=== PATIENT | female | born 1980 | race American Indian/Alaskan Native ===

== ENCOUNTER 2017-10-29 12:34 | Emergency (ER) | payer SELFPAY ==
[2017-10-29 12:46] VITALS: BP 111/63
--- NOTE | 2017-10-29 17:58 | Emergency Department Report ---
- General Chief Complaint: Upper Respiratory Infection Stated Complaint: FLU LIKE SYMPTOMS Time Seen by Provider: 10/29/17 17:41 Source: patient Mode of arrival: Ambulatory Limitations: No Limitations - History of Present Illness Initial Comments: This is a 37-year-old female who reports that she is not who presents with sore throat and hoarse voice, nasal congestion and discharge. MD Complaint: cough, sore throat, rhinorrhea, nasal congestion, sinus pain -: Gradual, days(s) Severity: moderate Quality: aching Consistency: intermittent Improves With: nothing Worsens With: nothing Associated Symptoms: headache, rhinorrhea, nasal congestion, sore throat, cough , hoarseness. denies: fever, chills, myalgias, diaphoresis, stiff neck, chest pain, shortness of breath, abdominal pain, nausea, vomiting, diarrhea, dysuria, rash, confusion, right sweats, weight loss, epistaxis, ear pain - Related Data Previous Rx's Medication Instructions Recorded Last Taken Type Acetaminophen [Tylenol Arthritis] 650 mg PO Q6HR PRN #30 tablet.er 10/29/17 Unknown Rx Fluticasone [Flonase] 1 spray NS QDAY #1 bottle 10/29/17 Unknown Rx Ibuprofen [Motrin] 600 mg PO Q8H PRN #30 tablet 10/29/17 Unknown Rx Allergies Allergy/AdvReac Type Severity Reaction Status Date / Time No Known Allergies Allergy Unverified 10/29/17 12:46 ED Review of Systems ROS: Stated complaint: FLU LIKE SYMPTOMS Other details as noted in HPI ED Past Medical Hx - Past Medical History Previous Medical History?: No - Surgical History Past Surgical History?: No - Social History Smoking Status: Never Smoker Substance Use Type: None - Medications Home Medications: Home Medications Medication Instructions Recorded Confirmed Last Taken Type Acetaminophen [Tylenol Arthritis] 650 mg PO Q6HR PRN #30 tablet.er 10/29/17 Unknown Rx Fluticasone [Flonase] 1 spray NS QDAY #1 bottle 10/29/17 Unknown Rx Ibuprofen [Motrin] 600 mg PO Q8H PRN #30 tablet 10/29/17 Unknown Rx ED Physical Exam - General Limitations: No Limitations General appearance: alert, in no apparent distress - Head Head exam: Present: atraumatic, normocephalic - Eye Eye exam: Present: normal appearance, PERRL, EOMI. Absent: nystagmus - ENT ENT exam: Present: normal exam (there is not sinus tenderness), normal orophraynx, mucous membranes moist, TM's normal bilaterally, normal external ear exam, other (there is nasal congestion noted in the right nostril. There is green-yellow mucus noted in the right nostril.) - Neck Neck exam: Present: normal inspection - Respiratory Respiratory exam: Present: normal lung sounds bilaterally. Absent: respiratory distress - Cardiovascular Cardiovascular Exam: Present: regular rate, normal rhythm, normal heart sounds. Absent: bradycardia, tachycardia, irregular rhythm, systolic murmur, diastolic murmur, rubs, gallop - GI/Abdominal GI/Abdominal exam: Present: soft. Absent: distended, tenderness, guarding, rebound, rigid, pulsatile mass - Extremities Exam Extremities exam: Present: normal inspection, tenderness, normal capillary refill. Absent: pedal edema, joint swelling, calf tenderness - Back Exam Back exam: Present: normal inspection, full ROM. Absent: tenderness, CVA tenderness (R), paraspinal tenderness, vertebral tenderness - Neurological Exam Neurological exam: Present: alert, oriented X3, CN II-XII intact, normal gait, other (Extraocular movements intact. Tongue midline. No facial droop. Facial sensation intact to light touch in the V1, V2, V3 distribution bilaterally. 5 and 5 strength in 4 extremities.. Sensation is intact to light touch in 4 extremities.). Absent: motor sensory deficit - Psychiatric Psychiatric exam: Present: normal affect, normal mood - Skin Skin exam: Present: warm, dry, intact, normal color. Absent: rash ED Course Vital Signs 10/29/17 12:44 Temperature 98.4 F Pulse Rate 89 Respiratory 16 Rate Blood Pressure 111/63 O2 Sat by Pulse 98 Oximetry ED Medical Decision Making - Lab Data Vital Signs 10/29/17 12:44 Temperature 98.4 F Pulse Rate 89 Respiratory 16 Rate Blood Pressure 111/63 O2 Sat by Pulse 98 Oximetry - Medical Decision Making Differential diagnosis, including but not limited to: Seasonal allergies, viral syndrome, sinusitis, laryngitis Assessment and plan: 37-year-old female who reports that she is not with laryngitis and nasal congestion. She is afebrile with reassuring vital signs, protecting her airway, clinically sober, has an unremarkable physical examination. She is noted to be playing on a saline phone. She can be managed expectantly. Critical care attestation.: If time is entered above; I have spent that time in minutes in the direct care of this critically ill patient, excluding procedure time. ED Disposition Clinical Impression: Laryngitis Disposition: DC-01 TO HOME OR SELFCARE Is pt being admited?: No Does the pt Need Aspirin: No Condition: Stable Instructions: Viral Syndrome (ED) Additional Instructions: Purchase Afrin [id number], and apply 1 spray per nostril twice daily for the next 3 days. Do not use his medication more than once every 12 hours, and do not use for more than 3 days consecutively. Use other medications as needed and directed, and gargle with salt water as often as as needed for symptom relief. Follow up with the primary care doctor within the next month, return to the ER right away with fevers, chills, lethargy, irritability, productive vomiting, change in mental status, confusion, inability to tolerate liquid feeds. The patient may return to work, she may wear a face mask if she so elects, and the patient should wash hands after and before contact with other clients/ customers, and should wash hands after coughing, sneezing. Prescriptions: Acetaminophen [Tylenol Arthritis] 650 mg PO Q6HR PRN #30 tablet.er PRN Reason: Pain Fluticasone [Flonase] 1 spray NS QDAY #1 bottle Ibuprofen [Motrin] 600 mg PO Q8H PRN #30 tablet PRN Reason: Pain Referrals: PRIMARY CARE [Primary Care Provider] - 3-5 Days [facility] [Provider Group] - 3-5 Days
[2017-10-29] MEDS ORDERED: MOTRIN PO ONE (18:02)
[2017-10-29] MEDS ORDERED: LIDOCAINE VISCOUS 2% PO ONE (18:02)
== END 2017-10-29 18:15 | disposition home or self-care (01) ==
LOC: ED 12:34
DX: R49.0 Dysphonia (principal); J04.0 Acute laryngitis
CPT/HCPCS: 99282